=== PATIENT | male | born 1995 | race Caucasian/White ===

== ENCOUNTER 2016-12-24 11:58 | Emergency (ER) | payer OTHER ==
[~2016-12-24] VITALS: Ht 167.6 cm; Wt 83.9 kg
--- NOTE | 2016-12-24 11:58 | NUR ---
Patient BIB [facility] to be evaluated as prebook, transferred to [facility]. RN evaluating patient.
--- NOTE | 2016-12-24 11:59 | NUR ---
Dr. Mendieta evaluating patient as fast track.
[2016-12-24 12:10] VITALS: BP 160/84
[2016-12-24 12:36] VITALS: BP 160/84
--- NOTE | 2016-12-24 12:37 | NUR ---
Patient discharged with v/s stable. Written and verbal after care instructions given and explained. Patient verbalized understanding. Police with in custody. All questions addressed prior to discharge. Advised to follow up with [employer]D.
== END 2016-12-24 12:18 ==
LOC: MED 11:58
DX: Z02.89 Encounter for other administrative examinations (principal)
CPT/HCPCS: 99283